=== PATIENT | male | born 1995 | race Caucasian/White ===

== ENCOUNTER 2018-01-16 13:12 | Emergency (ER) | payer MEDICAID, OTHER ==
[~2018-01-16] VITALS: Ht 170.2 cm; Wt 122.5 kg
[2018-01-16 13:19] VITALS: BP 143/74
--- NOTE | 2018-01-16 13:40 | NUR ---
22 Y/O M REFFERRED TO ER BY PCP FOR ABNORMAL LABS, SEVERE HYPER BILIRUBIN 3.3; PT DENIES N/V/D; PT STATES HE HAD ABD PAIN EARLIER TODAY BUT NOT CURRENTLY. SKIN IS INTACT, PINK/WARM/DRY; AAOX4, PERRL, WITH EVEN AND STEADY GAIT; LUNGS CLEAR BL, BREATHING UNLABORED; HR EVEN AND REGULAR, BL PERIPHERAL PULSES PRESENT; BS ACTIVE X4, NO TENDERNESS TO PALPATION, PT DENIES ANY FEVER, CP, SOB, OR COUGH AT THIS TIME; PT STATES 0/10 PAIN AT THIS TIME; VSS; PATIENT POSITIONED FOR COMFORT; HOB ELEVATED; BEDRAILS UP X2; BED DOWN.
--- NOTE | 2018-01-16 13:56 | NUR ---
PHLEB AT BEDSIDE
[2018-01-16 14:07] LABS: BASOPHILS % (AUTO) 0.3 % (0.0-2.0); EOSINOPHILS # (AUTO) 0.1 K/uL (0-0.4); EOSINOPHILS % (AUTO) 2.2 % (0.0-4.0); HEMATOCRIT 46.7 % (36-52); HEMOGLOBIN 15.6 g/dL (12.0-18.0); LYMPHOCYTES # (AUTO) 1.6 K/uL (2.0-11.5); LYMPHOCYTES % (AUTO) 23.3 % (20.5-51.1); MEAN CORPUSCULAR HEMOGLOBIN 29 pg (27-31); MEAN CORPUSCULAR HGB CONC 34 g/dL (33-37); MEAN CORPUSCULAR VOLUME 86.7 fL (80-94); MONOCYTES # (AUTO) 0.5 K/uL (0.8-1.0); MONOCYTES % (AUTO) 6.6 % (1.7-9.3); NEUTROPHILS # (AUTO) 4.6 K/uL (1.8-7.7); NEUTROPHILS % (AUTO) 67.6 % (42.2-75.2); PLATELET COUNT (AUTO) 220 K/uL (140-450); RED BLOOD CELL COUNT(AUTO) 5.39 MIL/uL (4.20-6.10); RED CELL DISTRIBUTION WIDTH 13.3 % (11.6-13.7); WHITE BLOOD COUNT (AUTO) 6.8 K/uL (4.8-10.8)
--- NOTE | 2018-01-16 14:16 | NUR ---
PT RESTING COMFORTABLY AT THIS TIME. NAD NOTED.
[2018-01-16 15:00] LABS: ANION GAP 7.8 (8-16); CARBON DIOXIDE 31.1 mmol/L (21-32); POTASSIUM 3.9 mmol/L (3.5-5.1)
[2018-01-16 15:01] LABS: CREATININE 0.7 mg/dL (0.7-1.3); TOTAL BILIRUBIN 3.3 mg/dL (0.0-1.0)
[2018-01-16 15:09] VITALS: BP 139/72
--- NOTE | 2018-01-16 15:10 | NUR ---
Patient discharged with v/s stable. Written and verbal after care instructions given and explained. Patient verbalized understanding. Ambulatory with steady gait. All questions addressed prior to discharge. Advised to follow up with PMD.
== END 2018-01-16 15:10 | disposition home or self-care (01) ==
LOC: MED 13:12
DX: E80.6 Other disorders of bilirubin metabolism (principal); Z88.0 Allergy status to penicillin
CPT/HCPCS: 36415; 80053; 81002; 83690; 85025; 99284

== ENCOUNTER 2018-10-22 01:49 | Emergency (ER) | payer OTHER ==
[~2018-10-22] VITALS: Ht 170.2 cm; Wt 113.4 kg
[2018-10-22 02:00] VITALS: BP 140/85
--- NOTE | 2018-10-22 02:00 | NUR ---
TO BED # 12 AMBULATORY
--- NOTE | 2018-10-22 02:00 | NUR ---
23 Y/O MALE PRESENTS TO ED WITH C/O RUQ ABD PAIN PAIN X4 HRS. PT STATES 8/10 PAIN. SUDDEN ONSET. DENIES TRAUMA. NO N/V/D. NON-RADIATING PAIN. ABD SOFT-NONTENDER. VSS. ER MD AWARE. CONTINUE TO MONITOR.
--- NOTE | 2018-10-22 02:12 | NUR ---
SEEN AND EXAMINED BY DR. BOBBY
[2018-10-22] MEDS ORDERED: MORPHINE SULFATE 4 MG/ML SYR IVP ONE ×2 (02:20→03:50)
[2018-10-22] MEDS ORDERED: ONDANSETRON 4 MG/2 ML VIAL IVP ONE (02:20)
[2018-10-22] MEDS ORDERED: NACL 0.9% 1,000 ML IV ONE (02:20)
[2018-10-22 02:37] LABS: BASOPHILS % (AUTO) 0.3 % (0.0-2.0); EOSINOPHILS # (AUTO) 0.2 K/uL (0-0.4); EOSINOPHILS % (AUTO) 1.6 % (0.0-4.0); LYMPHOCYTES # (AUTO) 1.6 K/uL (2.0-11.5); LYMPHOCYTES % (AUTO) 14.6 % (20.5-51.1); MEAN CORPUSCULAR HEMOGLOBIN 30 pg (27-31); MEAN CORPUSCULAR HGB CONC 34 g/dL (33-37); MEAN CORPUSCULAR VOLUME 87.9 fL (80-94); MONOCYTES # (AUTO) 0.6 K/uL (0.8-1.0); MONOCYTES % (AUTO) 5.5 % (1.7-9.3); NEUTROPHILS # (AUTO) 8.3 K/uL (1.8-7.7); PLATELET COUNT (AUTO) 230 K/uL (140-450); RED BLOOD CELL COUNT(AUTO) 5.01 MIL/uL (4.20-6.10); RED CELL DISTRIBUTION WIDTH 13.1 % (11.6-13.7); WHITE BLOOD COUNT (AUTO) 10.6 K/uL (4.8-10.8)
[2018-10-22 02:51] LABS: ANION GAP 14.8 (8-16); CARBON DIOXIDE 28.1 mmol/L (21-32); CREATININE 0.9 mg/dL (0.7-1.3); POTASSIUM 3.9 mmol/L (3.5-5.1)
[2018-10-22 02:58] LABS: ALBUMIN 3.8 g/dL (3.4-5.0); TOTAL BILIRUBIN 2.3 mg/dL (0.0-1.0)
--- NOTE | 2018-10-22 03:00 | NUR ---
PT IN BED RESTING WITH EYES CLOSED. VSS. CONTINUE TO MONITOR.
--- NOTE | 2018-10-22 04:00 | NUR ---
PT IN BED RESTING WITH EYES CLOSED. VSS. PT STATES PAIN RELIEVED. CONTINUE TO MONITOR.
[2018-10-22 05:18] LABS: APPEARANCE,URINE CLEAR (CLEAR); BILIRUBIN,URINE NEGATIVE (NEGATIVE); BLOOD, URINE NEGATIVE (NEGATIVE); COLOR,URINE YELLOW (YELLOW); LEUKOCYTE ESTERASE ,URINE NEGATIVE (NEGATIVE); NITRITE, URINE NEGATIVE (NEGATIVE); PH,URINE 5.5 (5.0-9.0); UGLUCOSE NEGATIVE (NEGATIVE)
[2018-10-22 05:37] LABS: RBC,URINE NONE SEEN /HPF (0-5); WBC,URINE 0-5 /HPF (0-5)
[2018-10-22 05:39] VITALS: BP 140/85
--- NOTE | 2018-10-22 05:39 | NUR ---
PT DISCHARGED BY DR BOBBY. RX OF PEPCID GIVEN. SIDE EFFECTS EXLPAINED. INSTRUTED WITH F/U WITH PCP AND WHEN TO RETURN TO ER. PT VERBALLIZED UNDERSTANDING OF DC INSTRUCTIONS. ALL QUESTOINS ANSWERED.
== END 2018-10-22 05:39 | disposition home or self-care (01) ==
LOC: MED 01:49
DX: K80.80 Other cholelithiasis without obstruction (principal); Z88.0 Allergy status to penicillin
CPT/HCPCS: 36415; 76705; 80053; 81001; 82150; 83690; 85025; 96374; 96375; 96376; 99284; J2270; J2405; J7030; Q0092

== ENCOUNTER 2019-04-11 06:30 | Day surgery (SDC) | payer OTHER ==
--- NOTE | 2019-04-10 15:40 | NUR ---
RECEIVED REPORT FROM OR NURSE ISMA. PATIENT IS AWAKE, ALERT AND IN BED. FULL CODE, ALLERGIES TO PENICILLIN AND CINNAMON. PATIENT IS WAITING LAP CHOLY PROCEDURE PENDING FOR 1729. WILL RESUME CARE OF PATIENT UNTIL HE IS TRANSFERRED BACK TO OR.
--- NOTE | 2019-04-10 16:30 | NUR ---
REMINDED PATIENT OF NPO STATUS. PATIENT VERBALIZED UNDERSTANDING.
--- NOTE | 2019-04-10 18:45 | NUR ---
PATIENT RESTING QUIETLY IN BED. WILL ENDORSE TO LOADER TECHNICIAN NURSE FOR CONTINUITY OF CARE.
--- NOTE | 2019-04-10 19:30 | NUR ---
RECIEVED PT .AAOX4 , NO COMPLAIN OF PAIN AT THIS TIME . ON NPO - REMINDS PT KEEP MAINTAIN NPO - WAITING DR JAIMES DISPOSITION ABOUT THE SURGERY . MOTHER AT BEDSIDE , IV SITE INTACT AND PATENT . CALL LIGHT WITHIN REACH .WILL CONT. TO MONITOR.
--- NOTE | 2019-04-10 20:25 | NUR ---
S/E BY AP . FOR DISCHARGE TODAY AND CAME BACK [facility]. FOR SURGERY DR. JAIMES ORDERED .
--- NOTE | 2019-04-10 20:30 | NUR ---
ATE FOOD - TOLERATED - NO FURTHER COMPLAIN MADE.
--- NOTE | 2019-04-10 21:00 | NUR ---
IV CANNULA REMOVED - INTACT NEEDLE - NO ACTIVE BLEEDING NOTED - PROCEDURE TOLERATED WELL .
--- NOTE | 2019-04-10 21:23 | NUR ---
DISCHARGED WITH STABLE CONDITION , ACCOMPANIED BY RELATIVE.
[~2019-04-11] VITALS: Ht 170.2 cm; Wt 106.6 kg
[~2019-04-11 06:30] MED LIST: CLINDAMYCIN 600 MG in DEXTROSE 5% 50 ML IV SCH; CLINDAMYCIN 600 MG/4 ML VIAL IM ONE; MEPERIDINE 50 MG/ML SYR ONE; MIDAZOLAM 2 MG/2 ML VIAL ONE; fentaNYL 0.05 MG/ML VIAL ONE
[2019-04-11] MEDS ORDERED: CLINDAMYCIN 600 MG in DEXTROSE 5% 50 ML IV SCH (07:15)
[2019-04-11] MEDS ORDERED: DESFLURANE 240 ML BTL INH ONE (07:24)
[2019-04-11] MEDS ORDERED: ROCURONIUM 50 MG/5 ML VIAL IV ONE (07:24)
[2019-04-11] MEDS ORDERED: DEXAMETHASONE 4 MG/ML VIAL ONE (07:24)
[2019-04-11] MEDS ORDERED: LIDOCAINE 2% 100 MG/5 ML SYR IVP ONE (07:24)
[2019-04-11] MEDS ORDERED: PROPOFOL 200 MG/20 ML VIAL IV ONE (07:24)
[2019-04-11] MEDS ORDERED: BUPIVACAINE-MPF/EPI 0.25% 30 ML VIAL INJ ONE (07:24)
[2019-04-11] MEDS ORDERED: KETOROLAC 30 MG/ML VIAL ONE (07:24)
[2019-04-11] MEDS ORDERED: SUCCINYLCHOLINE CHLORIDE 200 MG/10 ML VIAL IVP ONE (07:24)
[2019-04-11] MEDS ORDERED: ONDANSETRON 4 MG/2 ML VIAL ONE (07:24)
[2019-04-11] MEDS ORDERED: fentaNYL 0.05 MG/ML VIAL ONE (07:31)
[2019-04-11] MEDS ORDERED: MIDAZOLAM 2 MG/2 ML VIAL ONE (07:31)
[2019-04-11] MEDS ORDERED: HYDROmorphone 1 MG/ML AMP IVP PRN ×2 (08:00→09:00)
[2019-04-11] MEDS ORDERED: ONDANSETRON 4 MG/2 ML VIAL IVP PRN (08:00)
[2019-04-11] MEDS: BUPIVACAINE-MPF/EPI 0.25% 30 ML VIAL INJ ONE (08:59)
[2019-04-11] MEDS ORDERED: NACL 0.9% 1,000 ML IV SCH (08:59)
[2019-04-11] MEDS ORDERED: HYDROcodone/APAP 5/325 MG 1 TAB TAB PO PRN (09:00)
[2019-04-11] MEDS ORDERED: MORPHINE SULFATE 2 MG/ML SYR IVP PRN (09:00)
[2019-04-11] MEDS: MORPHINE SULFATE 4 MG/ML SYR IV PRN (09:58)
== END 2019-04-11 11:10 | disposition home or self-care (01) ==
LOC: MOR 06:30 → MMU 06:31 → MOR 11:10
PROVIDERS: ATTEND Surgery
DX: K80.10 Calculus of gallbladder with chronic cholecystitis without obstruction (principal); K82.8 Other specified diseases of gallbladder; E66.3 Overweight; Z88.0 Allergy status to penicillin; Z91.018 Allergy to other foods
CPT/HCPCS: 47562; 71045; 82374; 88304; J0330; J1100; J1885; J2001; J2250; J2270; J2405; J2704; J3010; J3490; J7030; J7060; J7120; J2175

== ENCOUNTER 2022-10-16 14:17 | Emergency (ER) | payer OTHER ==
[~2022-10-16] VITALS: Ht 170.2 cm; Wt 156.5 kg
[2022-10-16 14:26] VITALS: BP 140/95; PULSE 86; RESP 20; TEMP 97; O2SAT 99
[2022-10-16] MEDS ORDERED: IBUPROFEN 600 MG TAB PO ONE (17:25)
[2022-10-16] MEDS ORDERED: KETOROLAC 30 MG/ML VIAL IM ONE (17:45)
[2022-10-16] MEDS ORDERED: PROCHLORPERAZINE 10 MG/2 ML VIAL IM ONE (17:45)
[2022-10-16] MEDS ORDERED: METOCLOPRAMIDE 10 MG/2 ML INJ VIAL IVP ONE (19:55)
[2022-10-16] MEDS ORDERED: NACL 0.9% 1,000 ML IV ONE (19:55)
[2022-10-16] MEDS ORDERED: diphenhydrAMINE 50 MG/ML VIAL IVP ONE (19:55)
--- NOTE | 2022-10-16 20:15 | NUR ---
PT TAKEN TO BED 7
--- NOTE | 2022-10-16 20:30 | NUR ---
Patient received on bed lying comfortably and awake. No acute distress. Respirations even and unlabored.
[2022-10-16] MEDS ORDERED: OFLO5SOL27 OT (21:00)
[2022-10-16] MEDS ORDERED: ACET-9496 PO (21:00)
[2022-10-16 21:50] VITALS: BP 131/79; PULSE 91; RESP 18; TEMP 98.1; O2SAT 99
--- NOTE | 2022-10-16 21:50 | NUR ---
Patient discharged with v/s stable. Written and verbal after care instructions given and explained. Patient alert, oriented and verbalized understanding of instructions. Ambulatory with steady gait. All questions addressed prior to discharge. ID band removed. Patient advised to follow up with PMD. Rx of Excedrin and Floxin given. Patient educated on indication of medication including possible reaction and side effects. Opportunity to ask questions provided and answered.
== END 2022-10-16 21:50 | disposition admitted as inpatient to this hospital (09) ==
LOC: MED 14:17
DX: G44.209 Tension-type headache, unspecified, not intractable (principal); Z20.822 Contact with and (suspected) exposure to COVID-19; H60.91 Unspecified otitis externa, right ear; Z88.0 Allergy status to penicillin; Z88.8 Allergy status to other drugs, medicaments and biological substances; Z79.899 Other long term (current) drug therapy
CPT/HCPCS: 71045; 87081; 87426; 87804; 96361; 96372; 96374; 96375; 99284; J0780; J1200; J1885; J2765; J7030

== ENCOUNTER 2022-11-22 14:49 | Emergency (ER) | payer OTHER ==
[~2022-11-22] VITALS: Ht 170.2 cm; Wt 150.6 kg
[~2022-11-22 14:49] MED LIST changes: +ACET-9496 PO; -CLINDAMYCIN 600 MG in DEXTROSE 5% 50 ML IV SCH; -CLINDAMYCIN 600 MG/4 ML VIAL IM ONE; -MEPERIDINE 50 MG/ML SYR ONE; -MIDAZOLAM 2 MG/2 ML VIAL ONE; +OFLO5SOL27 OT; -fentaNYL 0.05 MG/ML VIAL ONE
[2022-11-22 15:47] VITALS: BP 125/98; PULSE 98; RESP 20; TEMP 97.5; O2SAT 100
[2022-11-22 16:14] VITALS: O2SAT 98
--- NOTE | 2022-11-22 16:17 | NUR ---
27 Y/O M PATIENT PRESENTS TO ED WITH CHIEF COMPLAINT OF CHEST PAIN. PT STATES HE FELT PRESSURE AND SHARP PAIN MIDLINE CHEST AREA, WITH PALPATATIONS. PT STATES HE HAS NO PREVIOUS MEDICAL HX. DENIES N/V/D; SKIN IS PINK/WARM/DRY; AAOX4 WITH EVEN AND STEADY GAIT; LUNGS CLEAR BL; HR EVEN AND REGULAR; PT DENIES ANY FEVER, CP, SOB, OR COUGH AT THIS TIME; PATIENT STATES PAIN OF 0/10 AT THIS TIME; VSS; PATIENT POSITIONED FOR COMFORT; HOB ELEVATED; CALL LIGHT WITH IN REACH BEDRAILS UP X2; BED DOWN. ER MD MADE AWARE OF PT STATUS. PMHX NONE ALLERGIES NONE
[2022-11-22 17:32] LABS: BASOPHILS % (AUTO) 0.2 % (0.0-2.0); EOSINOPHILS # (AUTO) 0.1 K/uL (0-0.4); EOSINOPHILS % (AUTO) 0.7 % (0.0-4.0); HEMATOCRIT 45.4 % (36-52); HEMOGLOBIN 15.5 g/dL (12.0-18.0); LYMPHOCYTES # (AUTO) 1.3 K/uL (2.0-11.5); LYMPHOCYTES % (AUTO) 13.4 % (20.5-51.1); MEAN CORPUSCULAR HEMOGLOBIN 29 pg (27-31); MEAN CORPUSCULAR HGB CONC 34 g/dL (33-37); MEAN CORPUSCULAR VOLUME 84.3 fL (80-94); MONOCYTES # (AUTO) 0.5 K/uL (0.8-1.0); MONOCYTES % (AUTO) 4.9 % (1.7-9.3); NEUTROPHILS # (AUTO) 7.8 K/uL (1.8-7.7); NEUTROPHILS % (AUTO) 80.8 % (42.2-75.2); PLATELET COUNT (AUTO) 312 K/uL (140-450); RED BLOOD CELL COUNT(AUTO) 5.39 MIL/uL (4.20-6.10); RED CELL DISTRIBUTION WIDTH 13.7 % (11.6-13.7); WHITE BLOOD COUNT (AUTO) 9.7 K/uL (4.8-10.8)
[2022-11-22 17:45] LABS: ALBUMIN 3.9 g/dL (3.4-5.0); ANION GAP 11.9 (8-16); CARBON DIOXIDE 28.8 mmol/L (21-32); CREATININE 0.7 mg/dL (0.6-1.3); POTASSIUM 3.7 mmol/L (3.5-5.1); TOTAL BILIRUBIN 2.5 mg/dL (0.0-1.0)
--- NOTE | 2022-11-22 17:53 | NUR ---
The patient's care was reviewed and supervised by DALILA POZO RN.
[2022-11-22 18:22] VITALS: BP 122/67; PULSE 77; RESP 19; TEMP 97.4; O2SAT 100
== END 2022-11-22 18:22 | disposition home or self-care (01) ==
LOC: MED 14:49
DX: R00.2 Palpitations (principal); R07.9 Chest pain, unspecified; R06.02 Shortness of breath; R42 Dizziness and giddiness; Z88.0 Allergy status to penicillin; Z88.8 Allergy status to other drugs, medicaments and biological substances; Z79.899 Other long term (current) drug therapy; Z90.49 Acquired absence of other specified parts of digestive tract
CPT/HCPCS: 36415; 71045; 80053; 83880; 84484; 85025; 93005; 99285; Q0092